=== PATIENT | female | born 1995 | race Caucasian/White ===

== ENCOUNTER 2017-04-17 21:24 | Emergency (ER) | payer BC ==
[~2017-04-17] VITALS: Ht 152.4 cm; Wt 52.3 kg
[~2017-04-17 21:24] MED LIST: EQUALINE PRENATAL PO; MACROBID 1100 MG/CAP PO; MOTRIN 600600 MG/TAB PO; PHENERGAN12.5 MG/SU RC; PRENATAL FORMU1 EAC3 PO; TRANDATE 200MG200 MG PO
[2017-04-17 21:31] VITALS: TEMP 98.5
[2017-04-17 22:02] LABS: BASO % 0.2 % (0.0-2.0); EOS # 0.1 (0.0-0.7); EOS % 0.9 % (0-4.0); GRAN # 9.4 (1.4-6.5); GRAN % 67.2 % (42.2-75.2); HEMATOCRIT 39.1 % (37.0-47.0); HEMOGLOBIN 13.1 g/dl (12.5-16.0); LYMPH % 21.6 % (20.0-51.0); MEAN CELL VOLUME 86 fl (80.0-100.0); MEAN CORPUSCULAR HEMOGLOBIN 29 pg (27.0-31.0); MEAN CORPUSCULAR HGB CONC 34 g/dl (33.0-37.0); MEAN PLATELET VOLUME 9.1 fl (7.4-10.4); MONO # 1.4 (0.1-0.6); MONO % 9.9 % (1.7-9.3); PLATELET COUNT 333 K/mm3 (130-400); RED BLOOD COUNT 4.55 M/mm3 (4.10-5.30); REDCELL DISTRIBUTION WIDTH-CV 12.4 % (11.5-14.5); WHITE BLOOD COUNT 14.1 K/mm3 (4.8-10.8)
[2017-04-17 22:11] LABS: ADJUSTED CALCIUM 9.3 mg/dL (8.4-10.2); ALBUMIN 4.5 gm/dL (3.5-5.0); BILIRUBIN,TOTAL 0.4 mg/dL (0.0-1.0); C-REACTIVE PROTEIN 3.5 mg/dL (0.0-0.9); CALCIUM 9.7 mg/dL (8.4-10.2); CREATININE, serum 0.64 mg/dL (0.52-1.25); POTASSIUM 3.7 mmol/L (3.4-5.0); TOTAL PROTEIN 8.1 gm/dL (6.4-8.2)
[2017-04-17 22:23] LABS: PH 7 (5-8); SQUAMOUS EPITHELIAL None Seen /hpf; URINE APPEARANCE Hazy; URINE BACTERIA None Seen /hpf; URINE BILIRUBIN Negative (NEGATIVE); URINE BLOOD 2+ (NEGATIVE); URINE COLOR Yellow; URINE GLUCOSE Negative (NEGATIVE); URINE KETONE Trace (NEGATIVE); URINE RBC >50 /hpf; URINE UROBILINOGEN Negative (NEGATIVE); URINE WBC 20-50 /hpf
[2017-04-18] MEDS ORDERED: OMNICEF 300MG300 MG PO (00:03)
[2017-04-18] MEDS ORDERED: NORCO 325 MG-51 TAB PO (00:03)
[2017-04-18] MEDS ORDERED: ZOFRAN 4MG T4 MG/TAB PO (00:03)
[2017-04-18 00:50] VITALS: BP 135/99; PULSE 107
== END 2017-04-18 00:52 | disposition home or self-care (01) ==
LOC: COL.ER 21:24
PROVIDERS: Emergency Medicine
DX: N12 Tubulo-interstitial nephritis, not specified as acute or chronic (principal)
CPT/HCPCS: J0696; J2270; J2405; J7030; Q9967